=== PATIENT | male | born 1970 | race Caucasian/White ===

== ENCOUNTER 2017-05-01 15:00 | Emergency (ER) | payer BC ==
[~2017-05-01] VITALS: Ht 177.8 cm; Wt 113.4 kg
== END 2017-05-01 18:30 | disposition home or self-care (01) ==
LOC: CED 15:00
DX: S01.01XA Laceration without foreign body of scalp, initial encounter (principal); S40.811A Abrasion of right upper arm, initial encounter; Z23 Encounter for immunization; I10 Essential (primary) hypertension; W01.0XXA Fall on same level from slipping, tripping and stumbling without subsequent striking against object, initial encounter; Y93.89 Activity, other specified; Y92.009 Unspecified place in unspecified non-institutional (private) residence as the place of occurrence of the external cause
CPT/HCPCS: 12001; 90471; 90715; 99283